=== PATIENT | female | born 2000 | race Caucasian/White ===

== ENCOUNTER 2021-11-17 23:58 | Emergency (ER) | payer BC ==
[2021-11-18 01:17] LABS: CORONAVIRUS COVID-19 NAA NEGATIVE (NEGATIVE)
[2021-11-18] MEDS ORDERED: Ketorolac 30 MG/ML SDV IM ONE (02:02)
== END 2021-11-18 02:28 | disposition home or self-care (01) ==
LOC: JP.ED 23:58
DX: M94.0 Chondrocostal junction syndrome [Tietze] (principal); I10 Essential (primary) hypertension; Z72.0 Tobacco use; Z20.822 Contact with and (suspected) exposure to COVID-19
CPT/HCPCS: 0241U; 36415; 80053; 84484; 85025; 85379; 86140; 93005; 96372; 99285; J1885